=== PATIENT | male | born 1965 | race Caucasian/White ===

== ENCOUNTER 2022-07-21 13:35 | Inpatient (IN) | payer BC ==
[~2022-07-21] VITALS: Ht 180.3 cm; Wt 105.2 kg
[2022-07-21] VITALS (205 sets, daily range): BP systolic 126–169; BP diastolic 87–120; PULSE 72–86; TEMP 97.9–98; O2SAT 87–98
[2022-07-21 14:11] LABS: BASO % 0.3 % (0.0-2.0); EOS # 0.1 K/mm3 (0.0-0.7); EOS % 1.4 % (0.0-4.0); GRAN # 7.8 K/mm3 (1.4-6.5); GRAN % 76.4 % (42.2-75.2); HEMATOCRIT 47.4 % (42.0-52.0); HEMOGLOBIN 17.3 g/dl (13.5-18.0); LYMPH # 1.7 K/mm3 (1.2-3.4); LYMPH % 16.2 % (20.0-51.0); MEAN CELL VOLUME 83 fl (80.0-100.0); MEAN CORPUSCULAR HEMOGLOBIN 30 pg (27-31); MEAN CORPUSCULAR HGB CONC 37 g/dl (33.0-37.0); MEAN PLATELET VOLUME 10.9 fl (7.4-10.4); MONO # 0.5 K/mm3 (0.1-0.6); MONO % 5.3 % (1.7-9.3); PLATELET COUNT 188 K/mm3 (130-400); RED BLOOD COUNT 5.72 M/mm3 (4.20-5.60); REDCELL DISTRIBUTION WIDTH-CV 13.6 % (11.5-14.5)
[2022-07-21 14:30] LABS: ALBUMIN 4.2 gm/dL (3.5-5.0); BILIRUBIN,TOTAL 0.8 mg/dL (0.2-1.2); CALCIUM 9.7 mg/dL (8.4-10.2); CREATININE, serum 1.39 mg/dL (0.72-1.25); POTASSIUM 3.6 mmol/L (3.5-4.5); TOTAL PROTEIN 7.7 gm/dL (6.2-8.1)
[2022-07-21 14:51] LABS: TROPONIN-I 0.06 ng/mL (0.00-0.033)
--- NOTE | 2022-07-21 20:30 | NUR ---
PT REFUSED MRSA SWAB, ASKING WHAT THE SWAB WILL COST AND CONCERNED WITH PAYING FOR ANY EXTRA LABS/TESTS. DISCUSSED PT'S CONCERN WITH MEDICATIONS AND INSURANCE, ENCOURAGED PT TO DISCUSS WITH PUTTYING AND CALKING SUPERVISOR WITH ROUNDING IN AM.
[2022-07-22] VITALS (1063 sets, daily range): BP systolic 122–181; BP diastolic 78–117; PULSE 67–96; TEMP 97.7–98; O2SAT 91–100
[2022-07-22 05:41] LABS: BASO % 0.2 % (0.0-2.0); EOS # 0.3 K/mm3 (0.0-0.7); EOS % 2.6 % (0.0-4.0); GRAN # 6.4 K/mm3 (1.4-6.5); GRAN % 66.1 % (42.2-75.2); HEMATOCRIT 44.2 % (42.0-52.0); HEMOGLOBIN 15.5 g/dl (13.5-18.0); LYMPH # 2.2 K/mm3 (1.2-3.4); LYMPH % 23.2 % (20.0-51.0); MEAN CELL VOLUME 87 fl (80.0-100.0); MEAN CORPUSCULAR HEMOGLOBIN 30 pg (27-31); MEAN CORPUSCULAR HGB CONC 35 g/dl (33.0-37.0); MEAN PLATELET VOLUME 10.7 fl (7.4-10.4); MONO # 0.7 K/mm3 (0.1-0.6); MONO % 7.6 % (1.7-9.3); PLATELET COUNT 179 K/mm3 (130-400); RED BLOOD COUNT 5.11 M/mm3 (4.20-5.60); REDCELL DISTRIBUTION WIDTH-CV 13.8 % (11.5-14.5)
[2022-07-22 05:53] LABS: ALBUMIN 3.7 gm/dL (3.5-5.0); CALCIUM 9.5 mg/dL (8.4-10.2); CHOLESTEROL RISK RATIO 5.3; CREATININE, serum 1.32 mg/dL (0.72-1.25); MAGNESIUM 1.9 mg/dL (1.6-2.6); PHOSPHOROUS 3.4 mg/dL (2.3-4.7); POTASSIUM 3.7 mmol/L (3.5-4.5)
[2022-07-22 06:04] LABS: TROPONIN-I 0.05 ng/mL (0.00-0.033)
--- NOTE | 2022-07-22 10:36 | NUR ---
RECEIVED REPORT FROM NIGHTSMTFT RNROYAL. HEAD TO TOE ASSESSMENT COMPLETED. MEDICATIONS ADMINISTERED PER EMAR. PATIENT REPORTS NO PAIN, CHEST PAIN, OR SHORTNESS OF AIR. PATIENT ON NPO DIET UNTIL SEEN BY CARDIOLOGY. CALL LIGHT WITHIN REACH. WILL CONTINUE TO MONITOR.
--- NOTE | 2022-07-22 11:10 | NUR ---
PATIENT REPORTS HE DOES NOT TAKE MEDICATION AT HOME. WHEN ASKED IF HE WAS SUPPOSED TO BE TAKING ANY PRESCRIPTION MEDICATION PATIENT REPLIED "PROBABLY". PATIENT DOES NOT REMEMBER NAME OF PROVIDER WHO WOULD HAVE PRESCRIBED MEDICATIONS AND STATES IT WAS NOT LOCAL.
[2022-07-22 11:18] LABS: INR 1.2 (0.8-3.0); PROTHROMBIN TIME 13.5 SECONDS (9.7-12.8)
--- NOTE | 2022-07-22 11:45 | NUR ---
Stock Mover met with patient to discuss discharge planning. Patient lives alone in [place], [place] and does not have an established primary care physician. Patient is interested in getting set up with a provider here in [place]. BELLE provided list of [place] providers. Patient doesn't have a regular pharmacy, however reports he would likely use [facility] here in [place] if needed. Patient does not use any DME and is independent with [employer]. Patient is employed at [employer]. Patient does not have Advance Directives but was interested in DPOA-HC form. BELLE provided. Patient stated he needed to talk with some people to decide who to designate. Patient is not and has no children. Patient also reports he does not have siblings and his parents are . Patient has a girlfriend, Lizzie as well as a son in law, Turner. Patient stated Turner is to a step daughter. Patient advised he plans to return home at time of discharge. Patient has many concerns about what all is covered by his insurance during his hospital stay. BELLE consulted KAZ CardenasCM as patient is concerned about his recommended heart cath being covered. BELLE also provided patient with contact information for financial counseling. SW offered patient assistance with completing DPOA-HC if needed. Discharge Plan: Home
--- NOTE | 2022-07-22 13:19 | NUR ---
Initial visit: Pt was resting and content. Pt has no needs right now. Grappler will follow up as needed.
--- NOTE | 2022-07-22 15:22 | NUR ---
Pt voiced concerns about his insurance paying for cardiac cath. Reviewed status of pt, reassured pt that [facility] [place] was aware of inpt status. Answered all of pt questions and he voiced understanding.
[2022-07-23] VITALS (838 sets, daily range): BP systolic 125–146; BP diastolic 75–93; PULSE 61–84; TEMP 97.7–98.2; O2SAT 91–100
[2022-07-23 06:53] LABS: BASO % 0.4 % (0.0-2.0); EOS # 0.2 K/mm3 (0.0-0.7); GRAN # 4.5 K/mm3 (1.4-6.5); GRAN % 61.4 % (42.2-75.2); HEMATOCRIT 43.3 % (42.0-52.0); HEMOGLOBIN 14.8 g/dl (13.5-18.0); LYMPH % 27.3 % (20.0-51.0); MEAN CELL VOLUME 88 fl (80.0-100.0); MEAN CORPUSCULAR HEMOGLOBIN 30 pg (27-31); MEAN CORPUSCULAR HGB CONC 34 g/dl (33.0-37.0); MEAN PLATELET VOLUME 11.2 fl (7.4-10.4); MONO # 0.5 K/mm3 (0.1-0.6); MONO % 7.4 % (1.7-9.3); PLATELET COUNT 182 K/mm3 (130-400); RED BLOOD COUNT 4.93 M/mm3 (4.20-5.60); REDCELL DISTRIBUTION WIDTH-CV 14.3 % (11.5-14.5)
[2022-07-23 07:09] LABS: ALBUMIN 3.3 gm/dL (3.5-5.0); CREATININE, serum 1.56 mg/dL (0.72-1.25); PHOSPHOROUS 3.2 mg/dL (2.3-4.7)
--- NOTE | 2022-07-23 08:16 | NUR ---
Spoke with Aster RN, Dr. Saldaña' nurse, about patient's cath time and medication administration. Holding lovenox for now until told otherwise. not set cath time
--- NOTE | 2022-07-23 10:56 | NUR ---
See merge for all medication administration, vital sign, and intervention, times.
--- NOTE | 2022-07-23 15:46 | NUR ---
REPORT FROM [facility] ICU. PT TO ROOM 349. PT IS A/O X4, LUNGS CTA, TR BAND REMOVED HEMOSTATSIS ACHIEVED IN ICU.
--- NOTE | 2022-07-23 15:59 | NUR ---
pt hand off report given to DELTA Combs. PT left ICU at 1531. care relinquished at this time.
--- NOTE | 2022-07-23 16:42 | NUR ---
CALLED DAPHNE GONZALES FOR NEPHROLOGY CONSULT.
--- NOTE | 2022-07-23 19:38 | NUR ---
SHIFT REPORT FROM JOSE [facility]OR[facility]. PATIENT IN BED ON ROOM ENTRY. ALERT AND ORIENTED. AT BEDSIDE. HS MEDS PER EMAR. FLUSHED R AC IV, POSTOP FLUIDS STILL INFUSING. R WRIST SITE CDI WITH BANDAID, NO SIGNS OF HEMATOMA OR BLEEDING. DENIES PAIN. UA COLLECTED AND SENT TO LAB.
[2022-07-24 00:30] VITALS: BP 139/94; PULSE 77; TEMP 97.8
[2022-07-24 04:35] VITALS: BP 138/84; PULSE 80; TEMP 97.8
[2022-07-24 06:54] LABS: BASO % 0.3 % (0.0-2.0); EOS # 0.3 K/mm3 (0.0-0.7); GRAN # 4.7 K/mm3 (1.4-6.5); GRAN % 64.8 % (42.2-75.2); HEMATOCRIT 42.5 % (42.0-52.0); HEMOGLOBIN 14.6 g/dl (13.5-18.0); LYMPH # 1.7 K/mm3 (1.2-3.4); LYMPH % 23.1 % (20.0-51.0); MEAN CELL VOLUME 88 fl (80.0-100.0); MEAN CORPUSCULAR HEMOGLOBIN 30 pg (27-31); MEAN CORPUSCULAR HGB CONC 34 g/dl (33.0-37.0); MEAN PLATELET VOLUME 11.5 fl (7.4-10.4); MONO # 0.5 K/mm3 (0.1-0.6); MONO % 7.4 % (1.7-9.3); PLATELET COUNT 172 K/mm3 (130-400); RED BLOOD COUNT 4.83 M/mm3 (4.20-5.60)
[2022-07-24 07:04] LABS: ALBUMIN 3.2 gm/dL (3.5-5.0); CALCIUM 8.7 mg/dL (8.4-10.2); CREATININE, serum 1.34 mg/dL (0.72-1.25); MAGNESIUM 1.9 mg/dL (1.6-2.6); PHOSPHOROUS 3.1 mg/dL (2.3-4.7); POTASSIUM 3.8 mmol/L (3.5-4.5)
[2022-07-24 07:17] VITALS: BP 156/96; PULSE 68; TEMP 97.6
--- NOTE | 2022-07-24 07:20 | NUR ---
0800 assessment completed. Primary nurse Hima notified of elevated blood pressure per chart. Patient denies pain or discomfort at this time. Patient sitting in chair with call light within reach.
--- NOTE | 2022-07-24 09:39 | NUR ---
Pt. sitting up in chair. Pt. is a&OX3, assessment complete. IV to rt. ac patent, IV fluids infusing per orders. Pt. denies pain or other needs, call light within reach.
[2022-07-24] MEDS ORDERED: NORVASC 10MG10 MG PO (10:18)
[2022-07-24] MEDS ORDERED: ALTACE 5MG5 MG PO (10:18)
[2022-07-24] MEDS ORDERED: CATAPRES 0.1MG0.1 MG PO (10:18)
[2022-07-24] MEDS ORDERED: CLEOCIN HC150 MG/CAP PO (11:03)
[2022-07-24] MEDS ORDERED: ADVOCATE BLOOD1 EAC1 MC (11:04)
[2022-07-24 11:08] VITALS: BP 153/89; PULSE 73; TEMP 97.9
--- NOTE | 2022-07-24 11:09 | NUR ---
Primary nurse Hima notified of elevated blood pressure.
[2022-07-24] MEDS ORDERED: LIPITOR 40MG TA40 MG PO (11:16)
--- NOTE | 2022-07-24 12:40 | NUR ---
Pt. has discharge orders. INT discontinued from rt. ac. Pt. given discharge paperwork. Information reviewed with the pt. Pt.'s questions answered. Pt. voices understanding. Pt. escorted out by this nurse.
--- NOTE | 2022-07-24 15:45 | NUR ---
Detector Car Operator met with patient to discuss setting up primary care. Patient would like to get established with [facility]. SW contacted [facility] and faxed records. Appointment made for Wednesday at 1000, which was provided to director of community education to include in discharge information.
== END 2022-07-24 12:40 | disposition home or self-care (01) | DRG 287 ==
LOC: COL.ER 13:35 → ICU 16:28 → SURG 07-23 15:44
PROVIDERS: Emergency Medicine; ADMIT Internal Medicine
PROC: 4A023N7 Measurement of Cardiac Sampling and Pressure, Left Heart, Percutaneous Approach (ICD-10-PCS; principal; 2022-07-23)
PROC: B2111ZZ Fluoroscopy of Multiple Coronary Arteries using Low Osmolar Contrast (ICD-10-PCS; 2022-07-23)
DX: I16.1 Hypertensive emergency (principal); N17.9 Acute kidney failure, unspecified; R07.9 Chest pain, unspecified; R77.8 Other specified abnormalities of plasma proteins; R68.84 Jaw pain; N18.9 Chronic kidney disease, unspecified; K02.9 Dental caries, unspecified; E11.22 Type 2 diabetes mellitus with diabetic chronic kidney disease; F17.220 Nicotine dependence, chewing tobacco, uncomplicated; I12.9 Hypertensive chronic kidney disease with stage 1 through stage 4 chronic kidney disease, or unspecified chronic kidney disease; Z20.822 Contact with and (suspected) exposure to COVID-19
CPT/HCPCS: OP; G0378; J0360; J1644; J1650; J1815; J2250; J2270; J2405; J3010; J7030; J7050; J7120; Q9967